=== PATIENT | male | born 1995 | race Caucasian/White ===

== ENCOUNTER 2020-10-24 10:20 | Emergency (ER) | payer OTHER, SELFPAY ==
[2020-10-24 10:23] VITALS: BP 130/78; PULSE 70; RESP 18; TEMP 37.2; O2SAT 97; BMI 23.0
--- NOTE | 2020-10-24 10:48 | ED_ITS ---
HPI - Wound/Laceration General Chief Complaint: Wound/Laceration Stated Complaint: Wound/laceration Time Seen by Provider: 10/24/20 10:39 Source: patient Mode of arrival: ambulatory Limitations: no limitations History of Present Illness HPI narrative: 25 y/o male presenting with a small laceration to his right dorsa l forearm that he sustained at work just prior to arrival by hitting it on a metal shelf. Bleeding is controlled. Tetanus is UTD. Onset (ago): minute(s) Extremity Location: right: arm Body four view annotation: 1. superficial laceration Place: work Patient tetanus UTD: Yes Context: accidental Associated symptoms: none Treatments prior to arrival: bandage Related Data Allergies Allergy/AdvReac Type Severity Reaction Status Date / Time No Known Allergies Allergy Verified 10/24/20 10:22 Review of Systems Constitutional: Constitutional: Denies chills and Denies fever(s) ENT: Denies dizziness Cardiovascular: Cardiovascular: Denies chest pain and Denies dyspnea Respiratory: Respiratory: Denies dyspnea Gastrointestinal: Gastrointestinal: Denies nausea and Denies vomiting Musculoskeletal: Musculoskeletal: Denies deformity, Denies arthralgias, Denies joint swelling, Denies limited range of motion, Denies muscle weakness and Denies tingling Integumentary/Breasts: Skin/Breast: Reports new lesions and Denies erythema Neurologic: Denies dizziness and Denies tingling PMFSH Past Medical History Attestation statement: The following information was validated with the patient. Social History Social History Advance Directives: No Advance Directives Information Provided: Yes Physical Exam Vital Signs: Vital Signs: Last Vital Signs Temp 99.0 F 10/24/20 10:23 Pulse 70 10/24/20 10:23 Resp 18 10/24/20 10:23 BP 130/78 10/24/20 10:23 Pulse Ox 97 10/24/20 10:23 Body Mass Index 23.0 Appearance: Alert. Oriented X3. No acute distress. HEENT: normal inspection CVS: Normal heart rate and rhythm. Pulses normal. Respiratory: No respiratory distress. Skin: Skin warm and dry. Normal skin color. Normal skin turgor. No rashes. Extremities: right dorsal mid-forearm with a 2.5 superficial linear laceration with exposed adipose tissue. no active bleeding. NV intact distally. normal ROM of right elbow. normal hand grasp and ROM of all digits. Neuro: Oriented X 3. No motor deficit. No sensory deficit. Procedures Laceration Laceration 1: Site: upper extremity Side (If applicable): right Description: linear Depth: simple, single layer Local Anesthetic: lidocaine 2% Amount of anesthesia used (mL): 2 Pre-repair: wound explored and deep structures intact Skin layer closed with: nylon Size (cm): 5-0 Number of sutures: 3 Technique: simple, interrupted Critical Care Time Critical Care Time Critical Care Time: No Discharge Plan Discharge Clinical Impression: Laceration Patient Disposition: Home, Self-Care Instructions: Laceration (ED), Care For Your Stitches (ED) Additional Instructions: Three sutures were used to close your wound today. They will need to be removed in 7-10 days. See your doctor or come back to the ER for this. Do not get the wound wet for 24 hours. After that you can briefly wash with soap and water, then pat dry. Use topical bacitracin to the wound 1-2 times per day. Keep clean and dry. If you develop signs or symptoms of infection including increased pain, redness, warmth or drainage come back to the ER for further evaluation. Referrals: [facility] [Provider Group] - 2 days
[2020-10-24] MEDS: Lidocaine HCl 2 % MPF 5 ML VIAL INFILTRATI (11:43)
== END 2020-10-24 12:01 | disposition home or self-care (01) ==
PROVIDERS: Emergency Provider Emergency Medicine
DX: S51.811A Laceration without foreign body of right forearm, initial encounter (principal); M79.631 Pain in right forearm; W26.9XXA Contact with unspecified sharp object(s), initial encounter; Y93.9 Activity, unspecified; Y92.9 Unspecified place or not applicable; Y99.0 Civilian activity done for income or pay
CPT/HCPCS: 12001; 99283; 99284